=== PATIENT | female | born 1990 | race African-American/Black ===

== ENCOUNTER 2023-09-13 12:28 | Emergency (ER) | payer OTHER ==
[~2023-09-13] VITALS: Ht 185.4 cm; Wt 91.3 kg
[2023-09-13] MEDS: KETOROLAC 60MG 2ML VIAL IM ONE (14:05)
[2023-09-13] MEDS: methocarbamoL 500 MG TAB PO ONE (14:34)
[2023-09-13] MEDS: ACETAMINOPHEN 500 MG TAB PO ONE (14:34)
[2023-09-13] MEDS ORDERED: METH-1164 PO (16:17)
[2023-09-13] MEDS ORDERED: NAPR-837 PO (16:17)
[2023-09-13 16:29] VITALS: BP 117/78; TEMP 97.8; O2SAT 98
== END 2023-09-13 16:34 | disposition home or self-care (01) ==
LOC: EDBD 12:28 → M ED 12:28
DX: S50.312A Abrasion of left elbow, initial encounter (principal); M25.512 Pain in left shoulder; V49.40XA Driver injured in collision with unspecified motor vehicles in traffic accident, initial encounter; F17.200 Nicotine dependence, unspecified, uncomplicated; D64.9 Anemia, unspecified; M47.892 Other spondylosis, cervical region; M25.78 Osteophyte, vertebrae; Y92.410 Unspecified street and highway as the place of occurrence of the external cause; Y93.89 Activity, other specified; Y99.9 Unspecified external cause status; Z79.899 Other long term (current) drug therapy